=== PATIENT | female | born 1995 | race Caucasian/White ===

== ENCOUNTER 2018-07-16 21:48 | Emergency (ER) | payer SELFPAY ==
[2018-07-16 21:55] VITALS: BP 113/74
[2018-07-16] MEDS ORDERED: DUONEB *Not for PRN Use IH ONE (21:55)
--- NOTE | 2018-07-16 23:51 | XRay Report ---
FINAL REPORT PROCEDURE: XR CHEST ROUTINE 2V TECHNIQUE: PA and lateral chest radiographs were obtained. CPT 61747 HISTORY: SOB, asthma exacerbation COMPARISON: No prior studies are available for comparison. FINDINGS: Heart: Normal. Mediastinum/Vessels: Normal. Lungs/Pleural space: Normal. Bony thorax: No acute osseous abnormality. Other: IMPRESSION: Normal examination.
[2018-07-17] MEDS ORDERED: DECADRON IM ONE (00:47)
[2018-07-17] MEDS ORDERED: MOTRIN PO ONE (00:47)
[2018-07-17] MEDS ORDERED: PROVENTIL IH ONE (00:47)
[2018-07-17] MEDS ORDERED: ZITHROMAX PO ONE (00:49)
--- NOTE | 2018-07-17 01:31 | Emergency Department Report ---
Upper Respiratory HPI - HPI Chief Complaint: Adult Asthma Stated Complaint: CHEST PAIN/DIFF.BREATHING Time Seen by Provider: 07/17/18 00:45 Duration: 5 Days URI Symptoms: Rhinorrhea: Yes, Sore Throat: Yes, Ear Pain: No, Cough: Yes, Shortness of Breath: Yes, Sick Contacts: Yes, Unable to Take Fluids: No, Urine Output Abnormal: No, Listless Behavior: No Other History: 22-year-old female with a history of asthma and bronchitis and cough congestion 4 days unknown MAXIMUM TEMPERATURE 99.5 in triage is no nausea vomiting no back pain - Home Meds and Allergies Home Medications: Previous Rx's Medication Instructions Recorded Last Taken Type Pnv with Ca,No.71/Iron/FA 1 each PO QAM #90 tablet 07/26/14 Unknown Rx [ Vitamin Tablet] ALBUTEROL NEB's [Proventil 0.083% 2.5 mg IH QID PRN #25 vial 07/17/18 Unknown Rx NEBS] Azithromycin 250 mg PO SHOE STAMPER #6 tablet 07/17/18 Unknown Rx Codeine Phosphate/Guaifenesin 5 ml PO TID PRN #120 ml 07/17/18 Unknown Rx [Guaifenesin-Codeine Syrup] Ibuprofen 800 mg PO TID PRN #30 tablet 07/17/18 Unknown Rx Allergies/Adverse Reactions: Allergies Allergy/AdvReac Type Severity Reaction Status Date / Time No Known Allergies Allergy Unverified 12/20/13 09:33 ED Review of Systems ROS: Stated complaint: CHEST PAIN/DIFF.BREATHING Other details as noted in HPI Constitutional: chills, fever Eyes: denies: eye pain, eye discharge, vision change ENT: throat pain, congestion Respiratory: cough, shortness of breath, wheezing Cardiovascular: denies: chest pain, palpitations Endocrine: no symptoms reported Gastrointestinal: denies: abdominal pain, nausea, diarrhea Genitourinary: denies: urgency, dysuria, discharge Musculoskeletal: denies: back pain, joint swelling, arthralgia Skin: denies: rash, lesions Neurological: denies: headache, weakness, paresthesias Psychiatric: denies: anxiety, depression Hematological/Lymphatic: denies: easy bleeding, easy bruising ED Past Medical Hx - Past Medical History Hx Hypertension: No Hx Congestive Heart Failure: No Hx Diabetes: No Hx Deep Vein Thrombosis: No Hx Renal Disease: No Hx Sickle Cell Disease: No Hx Seizures: No Hx Asthma: Yes Hx COPD: No - Surgical History Past Surgical History?: No - Social History Smoking Status: Never Smoker - Medications Home Medications: Home Medications Medication Instructions Recorded Confirmed Last Taken Type Pnv with Ca,No.71/Iron/FA 1 each PO QAM #90 tablet 07/26/14 06/24/15 Unknown Rx [ Vitamin Tablet] ALBUTEROL NEB's [Proventil 0.083% 2.5 mg IH QID PRN #25 vial 07/17/18 Unknown Rx NEBS] Azithromycin 250 mg PO SHOE STAMPER #6 tablet 07/17/18 Unknown Rx Codeine Phosphate/Guaifenesin 5 ml PO TID PRN #120 ml 07/17/18 Unknown Rx [Guaifenesin-Codeine Syrup] Ibuprofen 800 mg PO TID PRN #30 tablet 07/17/18 Unknown Rx ED Bronchiolitis Physical Exam - Exam General: Vital signs noted. No distress. Alert and acting appropriately. HEENT: Yes Pharyngeal Erythema, Yes Rhinorrhea, No Conjuctival Injection, No Dry Mucous Membranes Ear: Neither TM Bulge, Neither TM Erythema, Neither EAC Discharge Neck: Yes Adenopathy, No Rigidity Lungs: Yes Wheezes, Yes Cough, Yes Retractions, No Clear Lung Sounds, No Good Air Exchange, No Stridor, No Nasal Flaring, No Use of Accessory Muscles Heart: Yes Regular, No Murmur Abdomen: Yes Normal Bowel Sounds, No Tenderness, No Peritoneal Signs Skin: No Rash, No Eczema Neurologic: Alert and oriented, no deficits. Musculoskeletal: Unremarkable. ED Bronchiolitis Tests - Testing Testing: CXR: Normal/Negative ED Physical Exam - General Limitations: No Limitations General appearance: alert, in no apparent distress - Head Head exam: Present: atraumatic, normocephalic - Eye Eye exam: Present: normal appearance - ENT ENT exam: Present: normal exam, mucous membranes moist - Expanded ENT Exam Expanded Ear exam: Present: normal external inspection Mouth exam: Present: normal external inspection. Absent: trismus Teeth exam: Present: normal inspection Throat exam: Positive: tonsillar erythema, tonsillomegaly. Negative: tonsillar exudate, R peritonsillar mass, L peritonsillar mass - Neck Neck exam: Present: normal inspection, full ROM, lymphadenopathy. Absent: tenderness, meningismus, thyromegaly - Respiratory Respiratory exam: Present: wheezes, chest wall tenderness, decreased breath sounds. Absent: respiratory distress, stridor - Cardiovascular Cardiovascular Exam: Present: regular rate, normal rhythm, normal heart sounds. Absent: systolic murmur, diastolic murmur, rubs, gallop - GI/Abdominal GI/Abdominal exam: Present: soft, normal bowel sounds. Absent: distended, bruit , hernia - Rectal Rectal exam: Present: deferred - Extremities Exam Extremities exam: Present: normal inspection, full ROM, normal capillary refill - Back Exam Back exam: Present: normal inspection, full ROM, tenderness. Absent: CVA tenderness (R), CVA tenderness (L), rash noted - Neurological Exam Neurological exam: Present: alert, oriented X3, CN II-XII intact, normal gait, reflexes normal - Psychiatric Psychiatric exam: Present: normal affect, normal mood - Skin Skin exam: Present: warm, dry, intact, normal color. Absent: rash ED Course Vital Signs 07/16/18 21:53 Temperature 99.2 F Pulse Rate 95 H Respiratory 20 Rate Blood Pressure 113/74 O2 Sat by Pulse 94 Oximetry - Reevaluation(s) Reevaluation #1: DuoNeb 1: Albuterol neb 1 Decadron ibuprofen azithromycin breathing greatly improved DC to home after neb treatments 07/17/18 01:32 ED Medical Decision Making - Radiology Data Radiology results: report reviewed, image reviewed no opacties no infiltrates - Medical Decision Making Bronchitis with mild fever also improved at this time patient is a history of ambulatory in ED from from fast trak to main ed and back to fast track with increased shortness of breath wheezing wheezing is resolved plan DC home Z-Arnol reviewed all inhaler prednisone burst followed up with PCP in 2-3 days patient verbalizes understanding and agreement with be DC'd home at this Critical care attestation.: If time is entered above; I have spent that time in minutes in the direct care of this critically ill patient, excluding procedure time. ED Disposition Clinical Impression: Bronchitis Disposition: DC- TO HOME OR SELFCARE Is pt being admited?: No Does the pt Need Aspirin: No Condition: Stable Instructions: Acute Bronchitis (ED) Prescriptions: ALBUTEROL NEB's [Proventil 0.083% NEBS] 2.5 mg IH QID PRN #25 vial PRN Reason: Wheezing Azithromycin 250 mg PO SHOE STAMPER #6 tablet Codeine Phosphate/Guaifenesin [Guaifenesin-Codeine Syrup] 5 ml PO TID PRN #120 ml PRN Reason: Cough Ibuprofen 800 mg PO TID PRN #30 tablet PRN Reason: PAIN FEVER Referrals: PRIMARY CARE,MD [Primary Care Provider] - 3-5 Days Forms: Work/School Release Form(ED) Time of Disposition: 01:50
== END 2018-07-17 01:45 | disposition home or self-care (01) ==
LOC: ED 21:48
DX: J45.909 Unspecified asthma, uncomplicated (principal)
CPT/HCPCS: 71046; 94640; 96372; 99283; J1100

== ENCOUNTER 2018-08-18 15:35 | Emergency (ER) | payer OTHER ==
[2018-08-18 16:00] VITALS: BP 122/66
[2018-08-18] MEDS ORDERED: TYLENOL PO ONE (16:00)
--- NOTE | 2018-08-18 18:12 | Emergency Department Report ---
ED General Adult HPI - General Chief complaint: Fever Stated complaint: HIGH FEVER Time Seen by Provider: 08/18/18 17:50 Source: patient Mode of arrival: Ambulatory Limitations: No Limitations - History of Present Illness Initial comments: Patient complains of a high fever at home along with body aches for the last 2 days. Patient states she feels like she was hit by a truck. Patient denies any sick contacts and also denies abdominal pain. Also denies dysuria. 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 #6 tablet 07/17/18 Unknown Rx Codeine Phosphate/Guaifenesin 5 ml PO TID PRN #120 ml 07/17/18 Unknown Rx [Guaifenesin-Codeine Syrup] Ibuprofen 800 mg PO TID PRN #30 tablet 07/17/18 Unknown Rx ALBUTEROL Inhaler(NF) [VENTOLIN 2 puff IH Q4HR #1 inha 08/18/18 Unknown Rx Inhaler(NF)] Oseltamivir [Tamiflu] 75 mg PO BID #10 cap 08/18/18 Unknown Rx traMADol [Ultram] 50 mg PO Q6HR PRN #20 tablet 08/18/18 Unknown Rx Allergies Allergy/AdvReac Type Severity Reaction Status Date / Time No Known Allergies Allergy Unverified 12/20/13 09:33 ED Review of Systems ROS: Stated complaint: HIGH FEVER Other details as noted in HPI Comment: All other systems reviewed and negative Constitutional: denies: chills, fever Eyes: denies: eye pain, eye discharge, vision change ENT: denies: ear pain, throat pain Respiratory: denies: cough, shortness of breath, wheezing Cardiovascular: denies: chest pain, palpitations Endocrine: no symptoms reported Gastrointestinal: denies: abdominal pain, nausea, diarrhea Genitourinary: denies: urgency, dysuria, discharge Musculoskeletal: denies: back pain, joint swelling, arthralgia Skin: denies: rash, lesions Neurological: denies: headache, weakness, paresthesias Psychiatric: denies: anxiety, depression Hematological/Lymphatic: denies: easy bleeding, easy bruising ED Past Medical Hx - Past Medical History Hx Hypertension: No Hx Congestive Heart Failure: No Hx Diabetes: No Hx Deep Vein Thrombosis: No Hx Renal Disease: No Hx Sickle Cell Disease: No Hx Seizures: No Hx Asthma: Yes Hx COPD: No - Social History Smoking Status: Never Smoker Substance Use Type: None - Medications Home Medications: Home Medications Medication Instructions Recorded Confirmed Last Taken Type Pnv with Ca,No.71/Iron/FA 1 each PO QAM #90 tablet 07/26/14 06/24/15 Unknown Rx [ Vitamin Tablet] ALBUTEROL NEB's [Proventil 0.083% 2.5 mg IH QID PRN #25 vial 07/17/18 Unknown Rx NEBS] Azithromycin 250 mg PO BEATER ENGINEER HELPER #6 tablet 07/17/18 Unknown Rx Codeine Phosphate/Guaifenesin 5 ml PO TID PRN #120 ml 07/17/18 Unknown Rx [Guaifenesin-Codeine Syrup] Ibuprofen 800 mg PO TID PRN #30 tablet 07/17/18 Unknown Rx ALBUTEROL Inhaler(NF) [VENTOLIN 2 puff IH Q4HR #1 inha 08/18/18 Unknown Rx Inhaler(NF)] Oseltamivir [Tamiflu] 75 mg PO BID #10 cap 08/18/18 Unknown Rx traMADol [Ultram] 50 mg PO Q6HR PRN #20 tablet 08/18/18 Unknown Rx ED Physical Exam - General Limitations: No Limitations General appearance: alert, in no apparent distress - Head Head exam: Present: atraumatic, normocephalic - Eye Eye exam: Present: normal appearance, PERRL, EOMI - ENT ENT exam: Present: mucous membranes moist - Neck Neck exam: Present: normal inspection - Respiratory Respiratory exam: Present: normal lung sounds bilaterally. Absent: respiratory distress, wheezes, rales, rhonchi - Cardiovascular Cardiovascular Exam: Present: regular rate, normal rhythm. Absent: systolic murmur, diastolic murmur, rubs, gallop - GI/Abdominal GI/Abdominal exam: Present: soft, normal bowel sounds. Absent: distended, tenderness - Extremities Exam Extremities exam: Present: normal inspection - Back Exam Back exam: Present: normal inspection - Neurological Exam Neurological exam: Present: alert, oriented X3 - Psychiatric Psychiatric exam: Present: normal affect, normal mood - Skin Skin exam: Present: warm, dry, intact, normal color. Absent: rash ED Course Vital Signs 08/18/18 08/18/18 15:56 17:03 Temperature 102.7 F H Pulse Rate 156 H Respiratory 24 18 Rate Blood Pressure 122/66 O2 Sat by Pulse 100 Oximetry ED Medical Decision Making - Medical Decision Making Discussed plan of care with patient Critical care attestation.: If time is entered above; I have spent that time in minutes in the direct care of this critically ill patient, excluding procedure time. ED Disposition Clinical Impression: Influenza Disposition: DC- TO HOME OR SELFCARE Is pt being admited?: No Does the pt Need Aspirin: No Condition: Stable Instructions: Influenza (ED) Additional Instructions: return if worse Prescriptions: ALBUTEROL Inhaler(NF) [VENTOLIN Inhaler(NF)] 2 puff IH Q4HR #1 inha Oseltamivir [Tamiflu] 75 mg PO BID #10 cap traMADol [Ultram] 50 mg PO Q6HR PRN #20 tablet PRN Reason: Pain Referrals: PRIMARY MD OSCAR [Primary Care Provider] - 3-5 Days JUMA PLASCENCIA MD [Staff Physician] - 3-5 Days [facility] [Provider Group] - 3-5 Days Time of Disposition: 18:12
[2018-08-18 18:46] LABS: Bacteria,Urine 3+ /HPF (Negative); Bilirubin,Urine NEG (Negative); Blood,Urine MOD (Negative); Color,Urine Amber (Yellow); Mucus,Urine 1+ /HPF
[2018-08-18 18:49] LABS: HCG Qualitative,Urine Negative (Negative)
== END 2018-08-18 18:19 | disposition home or self-care (01) ==
LOC: ED 15:35
DX: J11.1 Influenza due to unidentified influenza virus with other respiratory manifestations (principal); J45.909 Unspecified asthma, uncomplicated
CPT/HCPCS: 81001; 81025; 99283

== ENCOUNTER 2019-01-01 18:10 | Emergency (ER) | payer SELFPAY ==
[2019-01-01 18:21] VITALS: BP 110/79
--- NOTE | 2019-01-01 18:35 | Emergency Department Report ---
Chief Complaint: Nausea/Vomiting/Diarrhea Stated Complaint: FLU LIKE SYM Time Seen by Provider: 01/01/19 18:24 - HPI History of Present Illness: VOMITED 3 TIMES TODAY NO DIARRHEA DIZZY LMP 01/04 PMH ASTHMA RX NONE NO CIG NO ETOH NO DRUGS PT STATES HER HR HAS BEEN ELEVATED SHE HAS LOST ABOUT 10 POUNDS IN 2 WEEKS. MSE COMPLETED - Exam Vital Signs: Vital Signs 01/01/19 18:19 Temperature 99.4 F Pulse Rate 148 H Respiratory 16 Rate Blood Pressure 110/79 O2 Sat by Pulse 96 Oximetry MSE screening note: Focused history and physical exam performed. Due to findings the following was ordered: ED Disposition for MSE Condition: Stable
[2019-01-01 19:42] LABS: Alanine Aminotransferase 13 units/L (7-56); BUN/Creatinine Ratio 13; Blood Urea Nitrogen 9 mg/dL (7-17); Calcium 9.1 mg/dL (8.4-10.2); Hemolysis Index 8
[2019-01-01 19:49] LABS: Bacteria,Urine 2+ /HPF (Negative); Bilirubin,Urine NEG (Negative); Blood,Urine SM (Negative); Color,Urine Amber (Yellow); Mucus,Urine 3+ /HPF
[2019-01-01 19:53] LABS: HCG Qualitative,Urine Negative (Negative)
== END 2019-01-01 23:00 | disposition left against medical advice (07) ==
LOC: ED 18:10
DX: R11.2 Nausea with vomiting, unspecified (principal); J45.909 Unspecified asthma, uncomplicated
CPT/HCPCS: 36415; 80053; 81001; 81025; 83690; 84443; 93005; 93010; 99283

== ENCOUNTER 2019-04-26 19:15 | Emergency (ER) | payer SELFPAY ==
[2019-04-26 19:58] VITALS: BP 121/77
--- NOTE | 2019-04-26 23:52 | Emergency Department Report ---
ED Laceration HPI - HPI Chief Complaint: Skin/Abscess/Foreign Body Stated Complaint: LACERATIONS ON BOTH LEGS Occurred When: Before Yesterday Location: Lower Extremity Severity: moderate Tetanus Status: Unknown Laceration Symptoms: Yes Pain, No Foreign Body Sensation, No Numbness, No Weakness Other History: This is a 23-year-old female presents to the emergency room with bruising in laceration to bilateral posterior patella. Past medical history of asthma. Patient states she feel down the stairs in the back of her home 4 days ago. She is unsure of last tetanus vaccine. Patient states she is cleaning area with peroxide and water, apply Neosporin. Patient states the bleeding resolved and swelling improved. She was worried about bruising. She denies any loss of consciousness, hitting her head, numbness or tingling, warmth to the area, paresthesias, weakness. ED Review of Systems ROS: Stated complaint: LACERATIONS ON BOTH LEGS Other details as noted in HPI Constitutional: denies: chills, fever Respiratory: denies: cough, shortness of breath, wheezing Cardiovascular: denies: chest pain, palpitations Skin: lesions (bruising, swelling, and laceration behind both knees). denies: rash Neurological: denies: headache, weakness, paresthesias Psychiatric: denies: anxiety, depression ED Past Medical Hx - Past Medical History Previous Medical History?: Yes Hx Hypertension: No Hx Congestive Heart Failure: No Hx Diabetes: No Hx Deep Vein Thrombosis: No Hx Renal Disease: No Hx Sickle Cell Disease: No Hx Seizures: No Hx Asthma: Yes Hx COPD: No - Surgical History Past Surgical History?: No - Social History Smoking Status: Never Smoker Substance Use Type: None - Medications Home Medications: Home Medications Medication Instructions Recorded Confirmed Last Taken Type Pnv with Ca,No.71/Iron/FA 1 each PO QAM #90 tablet 07/26/14 06/24/15 Unknown Rx [ Vitamin Tablet] ALBUTEROL NEB's [Proventil 0.083% 2.5 mg IH QID PRN #25 vial 07/17/18 Unknown Rx NEBS] Azithromycin 250 mg PO CHIEF HYDROELECTRIC STATION OPERATOR #6 tablet 07/17/18 Unknown Rx Codeine Phosphate/Guaifenesin 5 ml PO TID PRN #120 ml 07/17/18 Unknown Rx [Guaifenesin-Codeine Syrup] Ibuprofen 800 mg PO TID PRN #30 tablet 07/17/18 Unknown Rx ALBUTEROL Inhaler(NF) [VENTOLIN 2 puff IH Q4HR #1 inha 08/18/18 Unknown Rx Inhaler(NF)] Oseltamivir [Tamiflu] 75 mg PO BID #10 cap 08/18/18 Unknown Rx traMADol [Ultram] 50 mg PO Q6HR PRN #20 tablet 08/18/18 Unknown Rx Clindamycin [Clindamycin CAP] 300 mg PO Q8H #21 cap 04/27/19 Unknown Rx Ibuprofen [Motrin 600 MG tab] 600 mg PO Q8H PRN #20 tablet 04/27/19 Unknown Rx Neomycin/Bacitracin/Polymyxinb 28.35 gm TP BID #1 oint...g. 04/27/19 Unknown Rx [Triple Antibiotic Ointment] Laceration Physical Exam - Exam General: Vital signs noted. No distress. Alert and acting appropriately. ED Course Vital Signs 04/26/19 19:21 Temperature 98.5 F Pulse Rate 100 H Respiratory 18 Rate Blood Pressure 121/77 O2 Sat by Pulse 98 Oximetry ED Medical Decision Making - Medical Decision Making Patient was examined by me. Vitals are normal and patient is in no acute distress. Received boostrix 08/2015. There are 3-5 cm contusions to bilateral posterior patella and laceration to right lateral posterior patella. Laceration cleaned with normal saline and a sterile 4 x 4 dressing applied to the area. Laceration is beyond time frame of suture repair. Patient fell 4 days ago. On focal exam there is no warmth or swelling to the area, denies SOB, and chest pain to be concerned of DVT. Instructed to clean the wound twice a day with soap and water and apply triple antibiotic ointment to the area. Will treat prophylactically with clindamycin to prevent infection. Instructed to continue to use ice or heat to prevent swelling and for pain. Referrals given to primary care clinic for follow-up. Plan discussed with patient to discharge home and treat outpatient. Patient discharged home in stable condition. Follow up with PCP in 2-3 days. Critical care attestation.: If time is entered above; I have spent that time in minutes in the direct care of this critically ill patient, excluding procedure time. ED Disposition Clinical Impression: Laceration Contusion Qualifiers: Encounter type: initial encounter Contusion area: lower leg Laterality: right Qualified Code(s): S80.11XA - Contusion of right lower leg, initial encounter Disposition: DC-01 TO HOME OR SELFCARE Is pt being admited?: No Does the pt Need Aspirin: No Condition: Stable Instructions: Laceration (ED), Contusion in Adults (ED) Additional Instructions: Rest Use ice or heat on affected area for 20 minutes and off for 2 hours. Take pain medication every 6-8 hours as needed for pain. Follow up with Primary Care Provider in 2-3 days. Prescriptions: Clindamycin [Clindamycin CAP] 300 mg PO Q8H #21 cap Ibuprofen [Motrin 600 MG tab] 600 mg PO Q8H PRN #20 tablet PRN Reason: Pain Neomycin/Bacitracin/Polymyxinb [Triple Antibiotic Ointment] 28.35 gm TP BID #1 oint...g. Referrals: SAPNA CHANGNORTON MD ANTONY [Primary Care Provider] - 3-5 Days [facility] [Outside] - 3-5 Days [facility] [Outside] - 3-5 Days Forms: Work/School Release Form(ED) Time of Disposition: 00:03 ED Skin/Abcess/FB EXAM - General General appearance: alert, in no apparent distress Limitations: No Limitations - Respiratory Respiratory exam: Positive: normal lung sounds bilaterally. Negative: respiratory distress, wheezes, rales, rhonchi, stridor - Cardiovascular Cardiovascular Exam: Positive: regular rate, normal rhythm - Skin Skin Exam: Positive: Warm, Dry, Normal Color. Negative: Intact, Cyanosis, Diaphoretic, Erythema, Urticaria, Vesicles, Petechiae, Pallor, Mottled Type of lesion: Positive: laceration (2 cm healing laceration into epidermis of right lateral posterior patella, the edges are well approximated, nontender, no drainage), other (bilateral posterior patella purple contusions, blanchable, tender, no swelling). Negative: foreign body, bite/sting, abrasion
== END 2019-04-27 00:06 | disposition home or self-care (01) ==
LOC: ED 19:15
DX: S80.11XA Contusion of right lower leg, initial encounter (principal); J45.909 Unspecified asthma, uncomplicated; W10.8XXA Fall (on) (from) other stairs and steps, initial encounter; Y93.89 Activity, other specified; Y92.89 Other specified places as the place of occurrence of the external cause; Y99.8 Other external cause status
CPT/HCPCS: 99282

== ENCOUNTER 2019-10-01 11:02 | Emergency (ER) | payer SELFPAY ==
[2019-10-01 11:35] VITALS: BP 139/81
--- NOTE | 2019-10-01 11:36 | Event Note ---
ED Screening Note Date of service: 10/01/19 Time: 11:35 ED Screening Note: 24 y o female presents with nausea, chills and back pain x yesterday cc of frequent urination This initial assessment/diagnostic orders/clinical plan/treatment(s) is/are subject to change based on patients health status, clinical progression and re- assessment by fellow clinical providers in the ED. Further treatment and workup at subsequent clinical providers discretion. Patient/guardian urged not to elope from the ED as their condition may be serious if not clinically assessed and managed. Initial orders include: ua,upt acc eval
[2019-10-01 12:35] LABS: Bilirubin,Urine NEG (Negative); Blood,Urine NEG (Negative); Color,Urine Yellow (Yellow); Mucus,Urine FEW /HPF; Protein,Urine <15 mg/dL mg/dL (Negative)
[2019-10-01 12:51] LABS: HCG Qualitative,Urine Negative (Negative)
--- NOTE | 2019-10-01 14:43 | Emergency Department Report ---
Vomiting/Diarrhea - HPI Chief Complaint: Nausea/Vomiting/Diarrhea Stated Complaint: BACK PAIN,FEVER,CHILLS Time Seen by Provider: 10/01/19 14:37 Duration: 1 Day Severity: moderate Nausea/Vomiting Severity: Mild Diarrhea Severity: None Pain Location: Generalized Pain Severity: Moderate Symptoms: Yes Fever, Yes Able to Tolerate Fluids, Yes Family w/ Similar Symptoms (daughter), No Watery Diarrhea, No Bloody diarrhea, No Recent Unusual Foods, No Recent Untreated Water, No Recent use of Antibiotics, No Contacts w/ Similar Symptoms, No Rash, No Hematuria, No Recent URI Symptoms Other History: This is a 24-year-old female who presents to the emergency room with fever, chills, and body aches since last night. Patient is taken Tylenol cold and flu minimal improvement of symptoms. Patient also reports the nausea started today around to the emergency room. States her daughter had a cold last week she thinks she caught something from her. She denies chest pain, shortness of breath, urinary frequency, urgency, dysuria, shortness of breath, dizziness, and abdominal pain. ED Review of Systems ROS: Stated complaint: BACK PAIN,FEVER,CHILLS Other details as noted in HPI Constitutional: chills, fever ENT: congestion. denies: ear pain, throat pain Respiratory: denies: cough, shortness of breath, wheezing Cardiovascular: denies: chest pain, palpitations Gastrointestinal: nausea. denies: abdominal pain, vomiting, diarrhea Musculoskeletal: myalgia. denies: back pain, joint swelling, arthralgia Skin: denies: rash, lesions Neurological: headache. denies: weakness, paresthesias Psychiatric: denies: anxiety, depression ED Past Medical Hx - Past Medical History Previous Medical History?: Yes Hx Hypertension: No Hx Congestive Heart Failure: No Hx Diabetes: No Hx Deep Vein Thrombosis: No Hx Renal Disease: No Hx Sickle Cell Disease: No Hx Seizures: No Hx Asthma: Yes Hx COPD: No - Surgical History Past Surgical History?: No - Social History Smoking Status: Never Smoker - Medications Home Medications: Home Medications Medication Instructions Recorded Confirmed Last Taken Type Pnv with Ca,No.71/Iron/FA 1 each PO QAM #90 tablet 07/26/14 06/24/15 Unknown Rx [ Vitamin Tablet] ALBUTEROL NEB's [Proventil 0.083% 2.5 mg IH QID PRN #25 vial 07/17/18 Unknown Rx NEBS] Azithromycin 250 mg PO [employer] #6 tablet 07/17/18 Unknown Rx Codeine Phosphate/Guaifenesin 5 ml PO TID PRN #120 ml 07/17/18 Unknown Rx [Guaifenesin-Codeine Syrup] Ibuprofen 800 mg PO TID PRN #30 tablet 07/17/18 Unknown Rx ALBUTEROL Inhaler(NF) [VENTOLIN 2 puff IH Q4HR #1 inha 08/18/18 Unknown Rx Inhaler(NF)] Oseltamivir [Tamiflu] 75 mg PO BID #10 cap 08/18/18 Unknown Rx traMADoL [Ultram] 50 mg PO Q6HR PRN #20 tablet 08/18/18 Unknown Rx Clindamycin [Clindamycin CAP] 300 mg PO Q8H #21 cap 04/27/19 Unknown Rx Ibuprofen [Motrin 600 MG tab] 600 mg PO Q8H PRN #20 tablet 04/27/19 Unknown Rx Neomycin/Bacitracin/Polymyxinb 28.35 gm TP BID #1 oint...g. 04/27/19 Unknown Rx [Triple Antibiotic Ointment] Cetirizine HCl [Zyrtec 10mg tab] 10 mg PO DAILY #30 tablet 10/01/19 Unknown Rx Fluticasone [Flonase] 1 spray NS QDAY #1 bottle 10/01/19 Unknown Rx Ondansetron [Zofran Odt] 4 mg PO Q8HR PRN #20 tab.rapdis 10/01/19 Unknown Rx Vomiting Diarrhea Exam - Exam General: Vital signs noted. No distress. Alert and acting appropriately. HEENT: Yes Pharyngeal Erythema (erythematous posterior pharynx, uvula midline, no peritonsillar swelling), Yes Moist Mucous Membranes, Yes Rhinorrhea (turbinates congested with clear discharge), No Pharyngeal Exudates, No Conjuctival Injection, No Frontal Tenderness, No Maxillary Tenderness Neck: No Adenopathy, No Rigidity Lungs: Yes Clear Lung Sounds, Yes Good Air Exchange, No Wheezes, No Stridor, No Cough, No Nasal Flaring, No Retractions, No Use of Accessory Muscles Heart exam: Regular: Yes, Murmur: No, Tachycardia: No Abdomen: Tenderness: No, Peritoneal Signs: No, Distention: No, Hyperactive Bowel sounds: No Skin exam: Rash: No, Edema: No, Normal turgor: Yes Neurologic: Alert and oriented, no deficits. Musculoskeletal: Unremarkable. ED Course Vital Signs 10/01/19 11:33 Temperature 99 F Pulse Rate 107 H Respiratory 18 Rate Blood Pressure 139/81 O2 Sat by Pulse 100 Oximetry ED Medical Decision Making - Lab Data Lab Results 10/01/19 10/01/19 Range/Units 15:40 Unknown Urine Color Yellow (Yellow) Urine Turbidity Slightly-cloudy (Clear) Urine pH 7.0 (5.0-7.0) Ur Specific [place] 1.019 (1.003-1.030) Urine Protein <15 mg/dl (Negative) mg/dL Urine Glucose (UA) Neg (Negative) mg/dL Urine Ketones Neg (Negative) mg/dL Urine Blood Neg (Negative) Urine Nitrite Neg (Negative) Urine Bilirubin Neg (Negative) Urine Urobilinogen 2.0 (<2.0) mg/dL Ur Leukocyte Esterase Tr (Negative) Urine WBC (Auto) 2.0 (0.0-6.0) /HPF Urine RBC (Auto) 1.0 (0.0-6.0) /HPF U Epithel Cells (Auto) 11.0 (0-13.0) /HPF Urine Mucus Few /HPF Urine HCG, Qual Negative (Negative) Influenza A (Rapid) Negative (Negative) Influenza B (Rapid) Negative (Negative) Group A Strep Rapid Negative (Negative) - Medical Decision Making 24 y.o. female that presents with chills, fever, body aches since last night. Patient examined by me and stable. No distress noted. Vitals stable. Obtained a rapid flu and strep and both negative. Assessment and plan upper respiratory infection. Recommend rest and increase fluid intake. Start Flonase, Zofran, and Zyrtec. Reviewed results with patient. Discharged home stable. Follow up with Primary Care Provider in 2-3 days. Critical care attestation.: If time is entered above; I have spent that time in minutes in the direct care of this critically ill patient, excluding procedure time. ED Disposition Clinical Impression: Acute viral syndrome Upper respiratory infection Qualifiers: URI type: acute nasopharyngitis (common cold) Qualified Code(s): J00 - Acute nasopharyngitis [common cold] Disposition: DC- TO HOME OR SELFCARE Is pt being admited?: No Condition: Stable Instructions: Upper Respiratory Infection (ED), Viral Syndrome (ED) Additional Instructions: Increase fluid intake and rest. Wash hands frequently. Continue taking Tylenol or ibuprofen to control fever. F/U with Primary Care Provider. Return to ER if fever, SOB, or difficulty breathing after 48 hours of supportive care. Prescriptions: Fluticasone [Flonase] 1 spray NS QDAY #1 bottle Ondansetron [Zofran Odt] 4 mg PO Q8HR PRN #20 tab.rapdis PRN Reason: Nausea And Vomiting Cetirizine HCl [Zyrtec 10mg tab] 10 mg PO DAILY #30 tablet Referrals: [facility] [Outside] - 3-5 Days [facility] [Outside] - 3-[address] [facility] [Outside] - 3-5 Days Forms: Work/School Release Form(ED) Time of Disposition: 16:33
[2019-10-01] MEDS ORDERED: IBUPROFEN 800 MG TAB PO ONE (15:48)
[2019-10-01] MEDS ORDERED: ONDANSETRON 4 MG ODT TAB PO ONE (15:50)
== END 2019-10-01 18:14 | disposition home or self-care (01) ==
LOC: ED 11:02
DX: B34.9 Viral infection, unspecified (principal); J06.9 Acute upper respiratory infection, unspecified
CPT/HCPCS: 81001; 81025; 87116; 87400; 87430; Q0162